=== PATIENT | female | born 2000 | race Caucasian/White ===

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

== ENCOUNTER 2021-02-18 22:27 | Emergency (ER) | payer MEDICAID ==
--- NOTE | 2021-02-18 22:38 | ERPHSYRPT ---
- History of Present Illness Time Seen by Provider: 02/18/21 22:33 Source: patient Physician History: The patient presents with a chief complaint of a sore throat. Onset was 2 to 3 days ago. The pain is constant and increases whenever she eats or drinks. She states that she has had a fever yesterday of 101 Fahrenheit. She also endorsed having some nasal congestion. She denies cough, shortness of breath, chest pain, headache. She denies any recent sick contacts. She reports been taken ibuprofen for pain and her last dose was either this morning or last night. When asked if she has been doing any salt water gargle she states that she "cannot." She comes to the emergency department seeking pain relief. Allergies/Adverse Reactions: sulfamethoxazole [From Bactrim] Adverse Reaction (Verified 04/24/17 09:03) Vomiting Hx Tetanus, Diphtheria Vaccination/Date Given: Yes Hx Influenza Vaccination/Date Given: No Hx Pneumococcal Vaccination/Date Given: No - Review of Systems Constitutional: Fever, No Chills, No Fatigue Ears, Nose, & Throat: Nose Congestion, Throat Pain, Painful Swallowing, No Nose Discharge, No Epistaxis, No Hoarse, No Stridor Respiratory: No Cough, No Dyspnea, No Stridor, No Wheezing Cardiac: No Chest Pain Abdominal/Gastrointestinal: No Abdominal Pain, No Nausea, No Vomiting All Other Systems: Reviewed and Negative - Past Medical History Pertinent Past Medical History: No Neurological History: No Pertinent History ENT History: No Pertinent History Cardiac History: No Pertinent History Respiratory History: Asthma Endocrine Medical History: No Pertinent History Musculoskeletal History: No Pertinent History GI Medical History: No Pertinent History History: No Pertinent History Psycho-Social History: No Pertinent History Female Reproductive Disorders: No Pertinent History Other Medical History: SEASONAL ALLERGIES - Past Surgical History Past Surgical History: Yes Neuro Surgical History: No Pertinent History Cardiac: No Pertinent History Respiratory: No Pertinent History Gastrointestinal: No Pertinent History Genitourinary: No Pertinent History Musculoskeletal: No Pertinent History Female Surgical History: No Pertinent History Other Surgical History: tubes in ears - Social History Smoking Status: Never smoker Exposure to second hand smoke: Yes Drug Use: none Patient Lives Alone: No Significant Family History: no pertinent family hx - Nursing Vital Signs Nursing Vital Signs: Initial Vital Signs Temperature 98 F 02/18/21 22:28 Pulse Rate 73 02/18/21 22:28 Respiratory Rate 18 02/18/21 22:28 Blood Pressure 129/77 02/18/21 22:28 O2 Sat by Pulse Oximetry 100 02/18/21 22:28 Pain Scale Pain Intensity 6 - Physical Exam General Appearance: no apparent distress, alert Eye Exam: PERRL/EOMI, No scleral icterus, No pale conjunctivae, No photophobia, No EOM palsy/anisocoria Ears, Nose, Throat Exam: TMs normal, moist mucous membranes, pharyngeal erythema, tonsillar exudate, other (2+ tonsils bilaterally with what appears to be developing exudate on both tonsils. No evidence of C[employer] CENTER DIRECTOR or Preet's. No evidence of poor dentition. No evidence of facial cellulitis.) Neck Exam: lymphadenopathy Respiratory Exam: normal breath sounds, No chest tenderness Cardiovascular Exam: regular rate/rhythm, normal peripheral pulses, capillary refill <2 sec, No murmur, No friction rub, No gallop Ordered Tests: Active Orders 24 hr Category Date Time Status [place] Screen Stat Lab 02/18/21 23:10 Completed Medication Summary Discontinued Medications Generic Name Dose Route Start Last Admin Trade Name Mark PRN Reason Stop Dose Admin Acetaminophen 1,000 mg 02/18/21 22:39 02/18/21 22:47 Acetaminophen 500 Mg Tablet PO 02/18/21 22:40 1,000 mg STAT ONE Administration Acetaminophen Confirm 02/18/21 22:46 Acetaminophen 500 Mg Tablet Administered 02/18/21 22:47 Dose 1,000 mg .ROUTE .STK-MED ONE Ibuprofen 400 mg 02/18/21 22:40 02/18/21 22:46 Ibuprofen 200 Mg Tablet PO 02/18/21 22:41 Not Given STAT ONE Ibuprofen 400 mg 02/18/21 22:46 02/18/21 22:47 Ibuprofen 400 Mg Tablet PO 02/18/21 22:47 400 mg STAT ONE Administration Ibuprofen Confirm 02/18/21 22:46 Ibuprofen 400 Mg Tablet Administered 02/18/21 22:47 Dose 400 mg .ROUTE .STK-MED ONE Lab/Rad Data: Laboratory Results 02/18/21 02/18/21 Range/Units 23:26 23:10 Monoscreen NEGATIVE (Negative) Group A Strep Antibody DETECTED (NEGATIVE) - Progress Progress: improved Progress Note: 02/18/21 23:34 Nontoxic in appearance. The patient likely suffering from a exudative tonsillitis likely viral etiology. There is no evidence of C[employer] CENTER DIRECTOR or Preet's and I doubt think any advanced imaging is warranted at this time. She tested negative for group A strep and her Monospot was negative. She ultimately was discharged home with instructions to take Tylenol and/or ibuprofen in a rotating manner for pain, throat lozenges, and to drink cool fluids and perform salt water gargles for pain relief. She agreed with and verbally understood the discharge plan. Counseled pt/family regarding: lab results, diagnosis, need for follow-up - Departure Departure Disposition: Home Clinical Impression: Exudative tonsillitis Condition: Stable Critical Care Time: No Referrals: ROLANDO ZIMMER [Primary Care Provider] - Follow up/PCP as directed Instructions: Sore Throat, Adult (DC) Additional Instructions: Please take Tylenol and or ibuprofen as needed for pain. You can purchase these medications [id number]. Please take these medications as instructed on the medication bottles. You can also apply [id number] throat lozenges to help with your sore throat. Also perform salt water gargles at least twice a day and continue to drink cool fluids to maintain hydration and for pain relief.
[2021-02-18] MEDS ORDERED: TYLENOL EXTRA STRENGTH 500 MG PO ONE (22:39)
[2021-02-18] MEDS ORDERED: MOTRIN 200 MG PO ONE (22:40)
[2021-02-18] MEDS ORDERED: TYLENOL EXTRA STRENGTH 500 MG ONE (22:46)
[2021-02-18] MEDS ORDERED: MOTRIN 400 MG ONE (22:46)
[2021-02-18] MEDS ORDERED: MOTRIN 400 MG PO ONE (22:46)
[2021-02-20 17:07] VITALS: BP 113/64; PULSE 51; O2SAT 99
== END 2021-02-18 23:36 | disposition home or self-care (01) ==
LOC: ED 22:27
DX: J03.90 Acute tonsillitis, unspecified (principal); R50.9 Fever, unspecified; R09.81 Nasal congestion
CPT/HCPCS: 36415; 86308; 87651; 99283; A9270-GY

== ENCOUNTER 2021-09-07 21:36 | Emergency (ER) | payer MEDICAID ==
[2021-09-07] MEDS ORDERED: BABY ASPIRIN 81 MG CHEW PO ONE (21:58)
[2021-09-07 22:11] LABS: Absolute Neutrophil Ct (ANC) 6.44 x10^3/uL (1.4-6.9); Basophil (Absolute #) 0.06 x10^3/uL (0-0.4); Eosinophil % 1.5 % (0.00-5.0); Eosinophil (Absolute #) 0.16 x10^3/uL (0-0.5); Hematocrit 35.4 % (35-47); Hemoglobin 12.1 g/dL (12.0-16.0); Lymphocyte (Absolute #) 2.96 x10^3/uL (1.0-4.6); Lymphocytes % 28.2 % (24.0-44.0); Mean Cell Volume 94.1 fL (78-100); Mean Corpuscular Hemoglobin 32.2 pg (26-32); Mean Corpuscular Hgb Concent. 34.2 g/dL (32-36); Mean Platelet Volume 9.5 fL (7.5-11.0); Monocyte (Absolute #) 0.84 x10^3/uL (0.0-1.3); Neutrophil % 61.4 % (36.0-66.0); Platelet Count 281 x10^3/uL (150-450); Red Blood Count 3.76 x10^6/uL (4.1-5.4); Red Cell Distribution Width 11.6 % (11.5-14.0); White Blood Count 10.5 x10^3/uL (4.0-10.5)
--- NOTE | 2021-09-07 22:13 | ERPHSYRPT ---
- History of Present Illness Time Seen by Provider: 09/07/21 21:37 Historian: patient Exam Limitations: no limitations Patient Subjective Stated Complaint: pt state "I have been feeling weird today and having palpitations." Triage Nursing Assessment: pt ambulated into the er; pt is axo x4; c/o palpitation; pt denies pain; pt states she feels off; pt states that she feels like her heart is racing; pt states "My lungs feel shaky."; clear, bounding apical pulse at 78 bpm; clear lung sounds in all lobes; strong sanjeev radial pulses; strong sanjeev pedal pulses; no edema present; vitals wnl; pt denies chest pain Physician History: 20 years old female presented in the ER with chief complaint of palpitations almost 2 hours ago while she was shopping, started feeling weird with as if she was having shortness of breath/short winded without any chest pain. It lasted for few minutes with improvement in palpitation but still feeling weird. Does have history of anxiety and panic attacks but it seems a little different than usual. No fever chills, nausea or vomiting reported. Denies any sick contact. Denies alcohol or drug use. Timing/Duration: today, resolved prior to arrival, sudden, improved Activities at Onset: activity Chest Pain Radiation: no radiation Severity of Pain-Max: none Severity of Pain-Current: none Modifying Factors: Improves With: nothing Associated Symptoms: palpitations, shortness of breath Prior Chest Pain/Cardiac Workup: no prior chest pain, no prior cardiac workup Nitro Today/Relief: no nitro taken today Aspirin Treatment Today: no aspirin today Allergies/Adverse Reactions: sulfamethoxazole [From Bactrim] Adverse Reaction (Verified 09/07/21 21:43) Vomiting Home Medications: No Reportable Medications [No Reported Medications] 09/07/21 [History] Hx Tetanus, Diphtheria Vaccination/Date Given: Yes Hx Influenza Vaccination/Date Given: No Hx Pneumococcal Vaccination/Date Given: No Immunizations Up to Date: Yes Travel Risk - International Travel Have you traveled outside of the country in past 3 weeks: No - Coronavirus Screening Are you exhibiting any of the following symptoms?: No Close contact with a COVID-19 positive Pt in past 14-21 Days: No - Vaccine Status Have you recieved a Covid-19 vaccination: No - Review of Systems Constitutional: No Symptoms Eyes: No Symptoms Ears, Nose, & Throat: No Symptoms Respiratory: Dyspnea Cardiac: Palpitations Abdominal/Gastrointestinal: No Symptoms Genitourinary Symptoms: No Symptoms Musculoskeletal: No Symptoms Skin: No Symptoms Neurological: No Symptoms Psychological: Anxiety Endocrine: No Symptoms Hematologic/Lymphatic: No Symptoms Immunological/Allergic: No Symptoms - Past Medical History Pertinent Past Medical History: No Neurological History: No Pertinent History ENT History: No Pertinent History Cardiac History: No Pertinent History Respiratory History: Asthma Endocrine Medical History: No Pertinent History Musculoskeletal History: No Pertinent History GI Medical History: No Pertinent History History: No Pertinent History Psycho-Social History: No Pertinent History Female Reproductive Disorders: No Pertinent History Other Medical History: SEASONAL ALLERGIES - Past Surgical History Past Surgical History: Yes Neuro Surgical History: No Pertinent History Cardiac: No Pertinent History Respiratory: No Pertinent History Gastrointestinal: No Pertinent History Genitourinary: No Pertinent History Musculoskeletal: No Pertinent History Female Surgical History: No Pertinent History Other Surgical History: tubes in ears - Social History Smoking Status: Light tobacco smoker Exposure to second hand smoke: Yes Drug Use: none Patient Lives Alone: No Significant Family History: no pertinent family hx - Female History Hx Last Menstrual Period: 09/07/21 Hx Now: (unkn) - Nursing Vital Signs Nursing Vital Signs: Initial Vital Signs Temperature 97.2 F 09/07/21 21:43 Pulse Rate 78 09/07/21 21:43 Respiratory Rate 10 L 09/07/21 21:43 Blood Pressure 138/87 09/07/21 21:43 O2 Sat by Pulse Oximetry 100 09/07/21 21:43 Pain Scale Pain Intensity 0 - Physical Exam General Appearance: no apparent distress, alert, anxiety Eye Exam: PERRL/EOMI, eyes nml inspection Ears, Nose, Throat Exam: normal ENT inspection, TMs normal, pharynx normal, moist mucous membranes Neck Exam: normal inspection, non-tender, supple, full range of motion Respiratory Exam: normal breath sounds, lungs clear Cardiovascular Exam: regular rate/rhythm, normal heart sounds Gastrointestinal/Abdomen Exam: soft, normal bowel sounds, No tenderness Back Exam: normal inspection, normal range of motion Extremity Exam: normal inspection, normal range of motion, pelvis stable Neurologic Exam: alert, oriented x 3, cooperative, tag stringer II-XII nml as tested, se nsation nml, No normal mood/affect Skin Exam: normal color SpO2 Interpretation: normal SpO2: 100 O2 Delivery: Room Air - Course EKG Interpreted by Me: RATE (70), Sinus Rhythm, NORMAL AXIS, NORMAL INTERVALS, NORMAL QRS Ordered Tests: Active Orders 24 hr Category Date Time Status Top Icer STAT Care 09/07/21 21:58 Active EKG-ER Only STAT Care 09/07/21 21:58 Active CHEST 1 VIEW (PORTABLE) Stat Exams 09/07/21 21:58 Taken CBC W DIFF Stat Lab 09/07/21 22:10 Completed CK-Creatinine Phosphokinase Stat Lab 09/07/21 22:10 Completed CMP Stat Lab 09/07/21 22:10 Completed D-DIMER QUANTITATIVE Stat Lab 09/07/21 22:10 Completed HCG QUALITATIVE,SERUM Stat Lab 09/07/21 22:10 Completed MAGNESIUM Stat Lab 09/07/21 22:10 Completed NT PRO BNP Stat Lab 09/07/21 22:10 Completed TROPONIN Q3H Lab 09/07/21 22:10 Completed TROPONIN Q3H Lab 09/08/21 01:00 Ordered TROPONIN Q3H Lab 09/08/21 04:00 Ordered TROPONIN Q3H Lab 09/08/21 07:00 Ordered TROPONIN Q3H Lab 09/08/21 10:00 Ordered TSH [TSH, 3RD Generation] Stat Lab 09/07/21 22:10 Completed Medication Summary Discontinued Medications Generic Name Dose Route Start Last Admin Trade Name Everq PRN Reason Stop Dose Admin Aspirin 324 mg 09/07/21 21:58 09/07/21 22:06 Aspirin 81 Mg Tab.Chew PO 09/07/21 21:59 324 mg STAT ONE Administration Lab/Rad Data: Laboratory Result Diagrams 09/07/21 22:10 09/07/21 22:10 Laboratory Results 09/07/21 09/07/21 09/07/21 Range/Units 22:10 22:10 22:10 WBC (4.0-10.5) x10^3/uL RBC (4.1-5.4) x10^6/uL Hgb (12.0-16.0) g/dL Hct (35-47) % MCV (78-100) fL MCH (26-32) pg MCHC (32-36) g/dL RDW (11.5-14.0) % Plt Count (150-450) x10^3/uL MPV (7.5-11.0) fL Gran % (36.0-66.0) % Immature Gran % (Auto) (0.00-0.4) % Nucleat RBC Rel Count (0.00-0.1) % Eos # (Auto) (0-0.5) x10^3/uL Immature Gran # (Auto) (0.00-0.03) x10^3u/L Absolute Lymphs (auto) (1.0-4.6) x10^3/uL Absolute Monos (auto) (0.0-1.3) x10^3/uL Absolute Nucleated RBC (0.00-0.01) x10^3u/L Lymphocytes % (24.0-44.0) % Monocytes % (0.0-12.0) % Eosinophils % (0.00-5.0) % Basophils % (0.0-0.4) % Absolute Granulocytes (1.4-6.9) x10^3/uL Basophils # (0-0.4) x10^3/uL D-Dimer 0.36 (0.0-0.50) mg/L Sodium (137-145) mmol/L Potassium (3.5-5.1) mmol/L Chloride (98-107) mmol/L Carbon Dioxide (22-30) mmol/L Anion Gap (5-15) MEQ/L BUN (7-17) mg/dL Creatinine (0.52-1.04) mg/dL Estimated GFR ML/MIN Glucose (74-106) mg/dL Calcium (8.4-10.2) mg/dL Magnesium (1.6-2.3) mg/dL Total Bilirubin (0.2-1.3) mg/dL AST (14-36) U/L ALT (0-35) U/L Alkaline Phosphatase (38-126) U/L Creatine Kinase (30-135) U/L Troponin I < 0.012 (0.000-0.034) ng/mL NT-Pro-B Natriuret Pep (0-450) pg/mL Serum Total Protein (6.3-8.2) g/dL Albumin (3.5-5.0) g/dL TSH 3rd Generation (0.47-4.68) mIU/L Serum , Qual NEGATIVE (Negative) 09/07/21 09/07/21 Range/Units 22:10 22:10 WBC 10.5 (4.0-10.5) x10^3/uL RBC 3.76 L (4.1-5.4) x10^6/uL Hgb 12.1 (12.0-16.0) g/dL Hct 35.4 (35-47) % MCV 94.1 (78-100) fL MCH 32.2 H (26-32) pg MCHC 34.2 (32-36) g/dL RDW 11.6 (11.5-14.0) % Plt Count 281 (150-450) x10^3/uL MPV 9.5 (7.5-11.0) fL Gran % 61.4 (36.0-66.0) % Immature Gran % (Auto) 0.3 (0.00-0.4) % Nucleat RBC Rel Count 0.0 (0.00-0.1) % Eos # (Auto) 0.16 (0-0.5) x10^3/uL Immature Gran # (Auto) 0.03 (0.00-0.03) x10^3u/L Absolute Lymphs (auto) 2.96 (1.0-4.6) x10^3/uL Absolute Monos (auto) 0.84 (0.0-1.3) x10^3/uL Absolute Nucleated RBC 0.00 (0.00-0.01) x10^3u/L Lymphocytes % 28.2 (24.0-44.0) % Monocytes % 8.0 (0.0-12.0) % Eosinophils % 1.5 (0.00-5.0) % Basophils % 0.6 (0.0-0.4) % Absolute Granulocytes 6.44 (1.4-6.9) x10^3/uL Basophils # 0.06 (0-0.4) x10^3/uL D-Dimer (0.0-0.50) mg/L Sodium 138 (137-145) mmol/L Potassium 3.7 (3.5-5.1) mmol/L Chloride 104 (98-107) mmol/L Carbon Dioxide 27 (22-30) mmol/L Anion Gap 10.5 (5-15) MEQ/L BUN 10 (7-17) mg/dL Creatinine 0.84 (0.52-1.04) mg/dL Estimated GFR > 60.0 ML/MIN Glucose 90 (74-106) mg/dL Calcium 9.3 (8.4-10.2) mg/dL Magnesium 1.8 (1.6-2.3) mg/dL Total Bilirubin 0.80 (0.2-1.3) mg/dL AST 21 (14-36) U/L ALT 13 (0-35) U/L Alkaline Phosphatase 45 (38-126) U/L Creatine Kinase 100 (30-135) U/L Troponin I (0.000-0.034) ng/mL NT-Pro-B Natriuret Pep 35.3 (0-450) pg/mL Serum Total Protein 6.8 (6.3-8.2) g/dL Albumin 4.2 (3.5-5.0) g/dL TSH 3rd Generation 1.360 (0.47-4.68) mIU/L Serum , Qual (Negative) - Progress Progress: improved Air Movement: good Progress Note: 09/07/21 23:11 20 years old is evaluated for palpitation. EKG showed normal sinus rhythm with no acute ischemic changes and negative troponins. Also has negative D-dimer. Chest x-ray reviewed by me no acute finding. Negative chemistry profile including TSH. Her symptoms could be secondary to anxiety. Recommended outpatient follow-up. Discussed signs symptoms of worsening needing return to ER which she seems understanding. She is a low heart score, do not think needs further work-up and is stable for discharge with outpatient follow-up. Blood Culture(s) Obtained: No Antibiotics given: No Counseled pt/family regarding: lab results, diagnosis, need for follow-up, rad results, smoking cessation - Departure Departure Disposition: Home Clinical Impression: Palpitations, Anxiety Condition: Stable Critical Care Time: No Referrals: ROLANDO ZIMMER [Primary Care Provider] - Follow up/PCP as directed (1-2 days for reevaluation) Instructions: Palpitations (DC) Additional Instructions: Follow-up with primary care for reevaluation. Do not smoke/vape. Return to ER for any worsening.
[2021-09-07 23:00] LABS: ALBUMIN 4.2 g/dL (3.5-5.0); ALKALINE PHOSPHATASE 45 U/L (38-126); ANION GAP 10.5 MEQ/L (5-15); BLOOD UREA NITROGEN 10 mg/dL (7-17); CHLORIDE 104 mmol/L (98-107); CK-Creatinine Phosphokinase 100 U/L (30-135); Calcium 9.3 mg/dL (8.4-10.2); Carbon Dioxide 27 mmol/L (22-30); Creatinine 1 0.84 mg/dL (0.52-1.04); EST GLOMERULAR FILTRATION RATE > 60.0 ML/MIN; Glucose 90 mg/dL (74-106); MAGNESIUM 1.8 mg/dL (1.6-2.3); NT PRO BNP 35.3 pg/mL (0-450); Potassium 3.7 mmol/L (3.5-5.1); SGOT/AST 21 U/L (14-36); SGPT/ALT 13 U/L (0-35); SODIUM 138 mmol/L (137-145); Total Protein 6.8 g/dL (6.3-8.2)
[2021-09-07 23:05] VITALS: BP 112/58; PULSE 70
[2021-09-07 23:13] VITALS: O2SAT 100
--- NOTE | 2021-09-08 09:11 | XRAY ---
Indication: Palpitations. Comparison: June 26, 2014. Portable chest again demonstrates normal heart, lungs, and bony thorax.
== END 2021-09-07 23:37 | disposition home or self-care (01) ==
LOC: ED 21:36
DX: R00.2 Palpitations (principal); F41.9 Anxiety disorder, unspecified; R06.02 Shortness of breath; Z72.0 Tobacco use; Z28.310 Unvaccinated for COVID-19
CPT/HCPCS: 36415; 71045; 80053; 82550; 83735; 83880; 84443; 84484; 84703; 85025; 85379; 93005; 93041; 99284; A9270-GY

== ENCOUNTER 2022-09-15 11:54 | Emergency (ER) | payer MEDICAID, OTHER ==
[2022-09-15] MEDS ORDERED: Sodium Chloride 0.9% 1000 ML 1,000 ML IV STA ×2 (12:23→14:35)
--- NOTE | 2022-09-15 12:37 | ERPHSYRPT ---
- History of Present Illness Time Seen by Provider: 09/15/22 12:35 Historian: patient Exam Limitations: no limitations Patient Subjective Stated Complaint: Pt reports she started experiencing abdominal pain throughout abdomen on Saturday. Some vomiting and diarrhea. Triage Nursing Assessment: Pt alert and oriented x3. No apparent respiratory dis tress. Ambulated to ED cot without difficulty. Skin w/p/d. Active bowel sounds in all four quads. Abdomen soft/minimal tenderness with palpation. Physician History: Pt reports she started experiencing abdominal pain throughout abdomen on Saturday. Some vomiting and diarrhea since yesterday Activities at Onset: none Quality: cramping Abdominal Pain Onset Location: generalized abdomen Pain Radiation: no radiation Modifying Factors: Improves With: nothing Associated Symptoms: diarrhea, fever/chills, nausea, vomiting Previous symptoms: no prior history Allergies/Adverse Reactions: sulfamethoxazole [From Bactrim] Adverse Reaction (Verified 09/15/22 12:12) Vomiting Hx Tetanus, Diphtheria Vaccination/Date Given: Yes Hx Influenza Vaccination/Date Given: No Hx Pneumococcal Vaccination/Date Given: No Travel Risk - International Travel Have you traveled outside of the country in past 3 weeks: No - Coronavirus Screening Are you exhibiting any of the following symptoms?: No - Vaccine Status Have you recieved a Covid-19 vaccination: No - Review of Systems Constitutional: No Fever, No Chills Eyes: No Symptoms Ears, Nose, & Throat: No Symptoms Respiratory: No Cough, No Dyspnea Cardiac: No Chest Pain, No Edema, No Syncope Abdominal/Gastrointestinal: Abdominal Pain, Nausea, Vomiting, No Diarrhea Genitourinary Symptoms: Dysuria, Hesitancy, Urgency Musculoskeletal: No Back Pain, No Neck Pain Skin: No Rash Neurological: No Dizziness, No Focal Weakness, No Sensory Changes Psychological: No Symptoms Endocrine: No Symptoms All Other Systems: Reviewed and Negative - Past Medical History Pertinent Past Medical History: No Neurological History: No Pertinent History ENT History: No Pertinent History Cardiac History: No Pertinent History Respiratory History: Asthma Endocrine Medical History: No Pertinent History Musculoskeletal History: No Pertinent History GI Medical History: No Pertinent History History: No Pertinent History Psycho-Social History: No Pertinent History Female Reproductive Disorders: No Pertinent History Other Medical History: SEASONAL ALLERGIES - Past Surgical History Past Surgical History: Yes Neuro Surgical History: No Pertinent History Cardiac: No Pertinent History Respiratory: No Pertinent History Gastrointestinal: No Pertinent History Genitourinary: No Pertinent History Musculoskeletal: No Pertinent History Female Surgical History: No Pertinent History Other Surgical History: tubes in ears - Social History Smoking Status: Never smoker Exposure to second hand smoke: No Drug Use: marijuana Patient Lives Alone: No Significant Family History: no pertinent family hx - Female History Hx Last Menstrual Period: 09/13/22 Hx Now: No - Nursing Vital Signs Nursing Vital Signs: Initial Vital Signs Temperature 97.6 F 09/15/22 12:10 Pulse Rate 68 09/15/22 12:10 Respiratory Rate 15 09/15/22 12:10 Blood Pressure 121/83 09/15/22 12:10 O2 Sat by Pulse Oximetry 97 09/15/22 12:10 Pain Scale Pain Intensity 5 - Physical Exam General Appearance: no apparent distress, alert Eye Exam: PERRL/EOMI, eyes nml inspection Ears, Nose, Throat Exam: normal ENT inspection, pharynx normal, moist mucous membranes Neck Exam: normal inspection, non-tender, supple, full range of motion Respiratory Exam: normal breath sounds, lungs clear, No respiratory distress Cardiovascular Exam: regular rate/rhythm, normal heart sounds Gastrointestinal/Abdomen Exam: soft, No tenderness, No mass Pelvic Exam: not done Back Exam: normal inspection, normal range of motion, No CVA tenderness, No vertebral tenderness Extremity Exam: normal inspection, normal range of motion, pelvis stable Neurologic Exam: alert, oriented x 3, cooperative, normal mood/affect, nml cerebellar function, sensation nml, No motor deficits Skin Exam: normal color, warm, dry SpO2: 97 - Course Nursing assessment & vital signs reviewed: Yes Ordered Tests: Active Orders 24 hr Category Date Time Status ABDOMEN AND PELVIS W/0 CONTRAS [CT] Stat Exams 09/15/22 14:31 Completed AMYLASE Stat Lab 09/15/22 12:27 Completed CBC W DIFF Stat Lab 09/15/22 12:27 Completed CMP Stat Lab 09/15/22 12:27 Completed HCG QUALITATIVE, SERUM Stat Lab 09/15/22 12:27 Completed LIPASE Stat Lab 09/15/22 12:27 Completed UA W/RFX UR CULTURE Stat Lab 09/15/22 12:27 Completed Medication Summary Discontinued Medications Generic Name Dose Route Start Last Admin Trade Name Freq PRN Reason Stop Dose Admin Sodium Chloride 1,000 mls @ 999 mls/hr 09/15/22 12:23 09/15/22 14:12 Sodium Chloride 0.9% 1000 Ml IV 09/15/22 13:23 Infused .Q1H1M STA Infusion Sodium Chloride Confirm 09/15/22 12:51 Sodium Chloride 0.9% 1000 Ml Administered 09/15/22 12:52 Dose 1,000 mls @ ud .ROUTE .STK-MED ONE Ceftriaxone Sodium/Dextrose 1 g in 50 mls @ 100 mls/hr 09/15/22 14:31 09/15/22 15:17 Rocephin 1 Gm-D5w 50 Ml Bag IV 09/15/22 15:00 Infused STAT STA Infusion Sodium Chloride 1,000 mls @ 999 mls/hr 09/15/22 14:35 09/15/22 15:43 Sodium Chloride 0.9% 1000 Ml IV 09/15/22 15:35 Infused .Q1H1M STA Infusion Ceftriaxone Sodium/Dextrose Confirm 09/15/22 14:35 Rocephin 1 Gm-D5w 50 Ml Bag Administered 09/15/22 14:36 Dose 1 g in 50 mls @ ud IV .STK-MED ONE Sodium Chloride Confirm 09/15/22 14:35 Sodium Chloride 0.9% 1000 Ml Administered 09/15/22 14:36 Dose 1,000 mls @ ud .ROUTE .STK-MED ONE Lab/Rad Data: Laboratory Result Diagrams 09/15/22 12:27 09/15/22 12:27 Laboratory Results 09/15/22 09/15/22 09/15/22 Range/Units 12:27 12:27 12:27 WBC 12.9 H (4.0-10.5) x10^3/uL RBC 4.37 (4.1-5.4) x10^6/uL Hgb 13.9 (12.0-16.0) g/dL Hct 40.8 (35-47) % MCV 93.4 (78-100) fL MCH 31.8 (26-32) pg MCHC 34.1 (32-36) g/dL RDW 11.2 L (11.5-14.0) % Plt Count 285 (150-450) x10^3/uL MPV 9.5 (7.5-11.0) fL Gran % 89.1 H (36.0-66.0) % Immature Gran % (Auto) 0.2 (0.00-0.4) % Nucleat RBC Rel Count 0.0 (0.00-0.1) % Eos # (Auto) 0.02 (0-0.5) x10^3/uL Immature Gran # (Auto) 0.03 (0.00-0.03) x10^3u/L Absolute Lymphs (auto) 0.89 L (1.0-4.6) x10^3/uL Absolute Monos (auto) 0.43 (0.0-1.3) x10^3/uL Absolute Nucleated RBC 0.00 (0.00-0.01) x10^3u/L Lymphocytes % 6.9 L (24.0-44.0) % Monocytes % 3.3 (0.0-12.0) % Eosinophils % 0.2 (0.00-5.0) % Basophils % 0.3 (0.0-0.4) % Absolute Granulocytes 11.46 H (1.4-6.9) x10^3/uL Basophils # 0.04 (0-0.4) x10^3/uL Sodium 138 (137-145) mmol/L Potassium 3.9 (3.5-5.1) mmol/L Chloride 99 (98-107) mmol/L Carbon Dioxide 25 (22-30) mmol/L Anion Gap 18.0 H (5-15) MEQ/L BUN 9 (7-17) mg/dL Creatinine 0.81 (0.52-1.04) mg/dL Estimated GFR > 60.0 ML/MIN Glucose 86 (74-106) mg/dL Calcium 9.7 (8.4-10.2) mg/dL Total Bilirubin 1.40 H (0.2-1.3) mg/dL AST 27 (14-36) U/L ALT 16 (0-35) U/L Alkaline Phosphatase 50 (38-126) U/L Serum Total Protein 8.4 H (6.3-8.2) g/dL Albumin 4.9 (3.5-5.0) g/dL Amylase 55 (30-110) U/L Lipase 56 (23-300) U/L Serum HCG, Qual NEGATIVE (NEGATIVE) Urine Color (Yellow) Urine Appearance (Clear) Urine pH (4.6-8.0) Ur Specific Gracey (1.005-1.030) Urine Protein (Negative) Urine Glucose (UA) (Negative) mg/dL Urine Ketones (Negative) Urine Blood (Negative) Urine Nitrite (Negative) Urine Bilirubin (Negative) Urine Urobilinogen (0.2) mg/dL Ur Leukocyte Esterase (Negative) U Hyaline Cast (Auto) (0-2) /LPF Urine Microscopic RBC (0-5) /HPF Urine Microscopic WBC (0-5) /HPF Ur Epithelial Cells (None Seen) /HPF Urine Bacteria (None Seen) /HPF Urine Culture Reflexed (NO) 09/15/22 Range/Units 12:27 WBC (4.0-10.5) x10^3/uL RBC (4.1-5.4) x10^6/uL Hgb (12.0-16.0) g/dL Hct (35-47) % MCV (78-100) fL MCH (26-32) pg MCHC (32-36) g/dL RDW (11.5-14.0) % Plt Count (150-450) x10^3/uL MPV (7.5-11.0) fL Gran % (36.0-66.0) % Immature Gran % (Auto) (0.00-0.4) % Nucleat RBC Rel Count (0.00-0.1) % Eos # (Auto) (0-0.5) x10^3/uL Immature Gran # (Auto) (0.00-0.03) x10^3u/L Absolute Lymphs (auto) (1.0-4.6) x10^3/uL Absolute Monos (auto) (0.0-1.3) x10^3/uL Absolute Nucleated RBC (0.00-0.01) x10^3u/L Lymphocytes % (24.0-44.0) % Monocytes % (0.0-12.0) % Eosinophils % (0.00-5.0) % Basophils % (0.0-0.4) % Absolute Granulocytes (1.4-6.9) x10^3/uL Basophils # (0-0.4) x10^3/uL Sodium (137-145) mmol/L Potassium (3.5-5.1) mmol/L Chloride (98-107) mmol/L Carbon Dioxide (22-30) mmol/L Anion Gap (5-15) MEQ/L BUN (7-17) mg/dL Creatinine (0.52-1.04) mg/dL Estimated GFR ML/MIN Glucose (74-106) mg/dL Calcium (8.4-10.2) mg/dL Total Bilirubin (0.2-1.3) mg/dL AST (14-36) U/L ALT (0-35) U/L Alkaline Phosphatase (38-126) U/L Serum Total Protein (6.3-8.2) g/dL Albumin (3.5-5.0) g/dL Amylase (30-110) U/L Lipase (23-300) U/L Serum HCG, Qual (NEGATIVE) Urine Color Dark Yellow A (Yellow) Urine Appearance Clear (Clear) Urine pH 5.5 (4.6-8.0) Ur Specific Gracey 1.025 (1.005-1.030) Urine Protein Trace A (Negative) Urine Glucose (UA) Negative (Negative) mg/dL Urine Ketones 80 A (Negative) Urine Blood Negative (Negative) Urine Nitrite Negative (Negative) Urine Bilirubin Negative (Negative) Urine Urobilinogen 1.0 A (0.2) mg/dL Ur Leukocyte Esterase Negative (Negative) U Hyaline Cast (Auto) NONE SEEN (0-2) /LPF Urine Microscopic RBC 0-2 (0-5) /HPF Urine Microscopic WBC 0-2 (0-5) /HPF Ur Epithelial Cells Few (None Seen) /HPF Urine Bacteria None Seen (None Seen) /HPF Urine Culture Reflexed NO (NO) CT/ABDOMEN AND PELVIS W/0 CONTRAS CLINICAL HISTORY:Abdominal pain, nausea, and vomiting; COMPARISON:None; TECHNIQUES:CT scan of the abdomen and pelvis was performed without IV or oral contrast. Coronal and sagittal reconstructive images were also obtained; FINDINGS: A scan through the lower chest reveals an unremarkable lung basis and heart. Abdomen. The liver is mildly enlarged and measures about 18 cm. No focal or diffuse parenchymal abnormality. The gallbladder shows the normal capacity and no definite stones. There is no evidence of wall thickening/ pericholecystic collection. The portal vein, intrahepatic biliary radicals, and bile ducts are normal. The spleen is normal in size, measures about 10.4 X 6.8 cm. The pancreas, and adrenal glands are unremarkable. The kidneys are unremarkable. They are normal in size and shape. No calculi or hydronephrosis. The ascending colon, the transverse colon, and the descending colon visualized small bowel loops are unremarkable. There is no evidence of significant enlargement of the mesenteric or retroperitoneal lymph nodes. Pelvis. The urinary bladder is unremarkable. The rectosigmoid colon is unremarkable. The other pelvic organs are unremarkable. The pelvic vasculature is unremarkable. No significant pelvic lymphadenopathy. No evident pelvic mass lesions or collections. No definite bony abnormalities could be depicted. NB: Normal CT appearance of the appendix. IMPRESSION: 1. Limited organ parenchymal evaluation in the limitations of noncontrast study. 2. Mild hepatomegaly. 3. No acute intra-abdominal abnormality. - Progress Progress: improved Counseled pt/family regarding: lab results, diagnosis, need for follow-up, rad results Medical Desision Making - Diagnostic Testing Diagnostic test were ordered, analyzed, and reviewed by me: Yes Radiological Interpretation: Discussed w/ radiologist - Risk of complications Low Risk: Low risk of morbidity from additional dx testing or treatment The pt has a mod risk of morbidity or mortality based on: Need for prescription drug management - Departure Departure Disposition: Home Clinical Impression: Anxiety Abdominal pain Qualifiers: Abdominal location: generalized Qualified Code(s): R10.84 - Generalized abdominal pain Condition: Stable Critical Care Time: Yes Critical Care Time(excluding separately billable procedures): Critical 30-74 mins Referrals: DOCTOR,NO FAMILY [Primary Care Provider] - Follow up/PCP as directed Instructions: Severe Abdominal Pain, Adult (DC) Additional Instructions: Discharge/Care Plan CHRIS WYNNE was seen on 09/15/22 in the Emergency Room. The patient was counseled regarding Diagnosis,Lab results, Imaging studies, need for follow up and when to return to the Emergency Room. Prescriptions given: Discharge Note I have spoken with the patient and/or caregivers. I have explained the patient's condition, diagnosis and treatment plan based on the information available to me at this time. I have answered the patient's and/or caregiver's questions and addressed any concerns. The patient and/or caregivers have as good understanding of the patient's diagnosis, condition and treatment plan as can be expected at this point. The vital signs have been stable. The patient's condition is stable and appropriate for discharge from the emergency department. The patient will pursue further outpatient evaluation with the primary care physician or other designated or consulting physician as outlined in the discharge instructions. The patient and/or caregivers are agreeable to this plan of care and follow-up instructions have been explained in detail. The patient and/or caregivers have received these instruction. The patient/and or caregivers are aware that any significant change in condition or worsening of symptoms should prompt an immediate return to this or the closest emergency department or call 911. CHRIS WYNNE was seen on 09/15/22 n the Emergency Room. At that time you were treated for an emergent condition, during your visit Laboratory, Radiology and/or other procedures may have been ordered. It is very important that you fo llow-up with your Primary Care Physician NO FAMILY DOCTOR within the next 24-48 hours to review your Emergency Room visit and the final results of testing that was ordered. Some test results such as Urine Cultures, Blood Cultures, and other cultures if ordered will not be finalized for 24-48 hours. If you do not have a Primary Care Provider please call the medical records department at [phone] to obtain a copy of your results or you may sign into our patient portal to obtain these results by visiting us @ [email or web address] and completing the following steps: 1. Click on the Patient Portal link 2. Click the Patient Self Enrollment Link to complete the enrollment form and entering your 3. Once the enrollment form is completed you will receive an email with a temporary ID and password at the email address you provided. 4. Next choose a user name and password. Your user name must be at least 4 ch aracters long and your password must be at least 4 characters long. 5. Choose a security question from the list and provide your answer to the question. If you already have signed into the Health Portal you may access your Health Care Information 22/10 by the following steps: 1. Login to our website @ [email or web address] 2. Enter your original user name and password. FAQS The [facility] Portal is an online tool that contains your Lab Results, Radiology Reports, Visit History, Discharge Instructions and Health Summary Lab and Radiology Results will not be available for 72 hours on the portal. The Portal is a secure site, passwords are encryted and URLs are re-written so they cannot be copied and pasted. You and authorized family members are the only ones who can access your Portal. Also there is a timeout feature that protects your information if you leave the Portal page open. If you have technical difficulty please use the Contact Us link on the page this will allow you to submit any questions you have regarding the Portal or you may contact the Medical Record Department at [phone]. Prescriptions: Hydroxyzine HCl 25 mg [Atarax 25 mg] 25 mg PO TID #45 tablet
[2022-09-15] MEDS ORDERED: Sodium Chloride 0.9% 1000 ML 1,000 ML ONE ×2 (12:51→14:35)
[2022-09-15 13:16] LABS: Absolute Neutrophil Ct (ANC) 11.46 x10^3/uL (1.4-6.9); BASOPHIL % 0.3 % (0.0-0.4); Basophil (Absolute #) 0.04 x10^3/uL (0-0.4); Eosinophil % 0.2 % (0.00-5.0); Eosinophil (Absolute #) 0.02 x10^3/uL (0-0.5); Hematocrit 40.8 % (35-47); Hemoglobin 13.9 g/dL (12.0-16.0); IMMATURE GRAN # 0.03 x10^3u/L (0.00-0.03); IMMATURE GRAN % 0.2 % (0.00-0.4); Lymphocyte (Absolute #) 0.89 x10^3/uL (1.0-4.6); Lymphocytes % 6.9 % (24.0-44.0); Mean Cell Volume 93.4 fL (78-100); Mean Corpuscular Hemoglobin 31.8 pg (26-32); Mean Corpuscular Hgb Concent. 34.1 g/dL (32-36); Mean Platelet Volume 9.5 fL (7.5-11.0); Monocyte (Absolute #) 0.43 x10^3/uL (0.0-1.3); Monocytes % 3.3 % (0.0-12.0); Neutrophil % 89.1 % (36.0-66.0); Platelet Count 285 x10^3/uL (150-450); Red Blood Count 4.37 x10^6/uL (4.1-5.4); Red Cell Distribution Width 11.2 % (11.5-14.0); White Blood Count 12.9 x10^3/uL (4.0-10.5)
[2022-09-15 13:32] LABS: ALBUMIN 4.9 g/dL (3.5-5.0); ALKALINE PHOSPHATASE 50 U/L (38-126); AMYLASE 55 U/L (30-110); BLOOD UREA NITROGEN 9 mg/dL (7-17); CHLORIDE 99 mmol/L (98-107); Calcium 9.7 mg/dL (8.4-10.2); Carbon Dioxide 25 mmol/L (22-30); Creatinine 1 0.81 mg/dL (0.52-1.04); EST GLOMERULAR FILTRATION RATE > 60.0 ML/MIN; Glucose 86 mg/dL (74-106); LIPASE 56 U/L (23-300); Potassium 3.9 mmol/L (3.5-5.1); SGOT/AST 27 U/L (14-36); SGPT/ALT 16 U/L (0-35); SODIUM 138 mmol/L (137-145); Total Protein 8.4 g/dL (6.3-8.2)
[2022-09-15 13:41] LABS: HCG SERUM TEST NEGATIVE (NEGATIVE)
[2022-09-15 13:42] LABS: Appearance Clear (Clear); Bacteria None Seen /HPF (None Seen); Bilirubin Negative (Negative); Blood Negative (Negative); Epithelial Cells Few /HPF (None Seen); Glucose, Urine Negative (Negative); Hyaline Casts NONE SEEN /LPF (0-2); Ketones 80 (Negative); Leukocyte Esterase Negative (Negative); Nitrite Negative (Negative); Ph 5.5 (4.6-8.0); Protein,Urine Dip Trace (Negative); RBC 0-2 /HPF (0-5); Specific Gravity 1.025 (1.005-1.030); WBC 0-2 /HPF (0-5)
[2022-09-15 13:43] LABS: ADD URINE CULTURE? NO (NO)
[2022-09-15 14:08] VITALS: BP 125/74
[2022-09-15] MEDS ORDERED: ROCEPHIN 1 Gm-D5w 50 ml Bag** 1 G/50 ML IVPB IV STA (14:31)
[2022-09-15] MEDS ORDERED: ROCEPHIN 1 Gm-D5w 50 ml Bag** 1 G/50 ML IVPB IV ONE (14:35)
--- NOTE | 2022-09-15 16:11 | XRAY ---
CLINICAL HISTORY:Abdominal pain, nausea, and vomiting; COMPARISON:None; TECHNIQUES:CT scan of the abdomen and pelvis was performed without IV or oral contrast. Coronal and sagittal reconstructive images were also obtained; FINDINGS: A scan through the lower chest reveals an unremarkable lung basis and heart. Abdomen. The liver is mildly enlarged and measures about 18 cm. No focal or diffuse parenchymal abnormality. The gallbladder shows the normal capacity and no definite stones. There is no evidence of wall thickening/ pericholecystic collection. The portal vein, intrahepatic biliary radicals, and bile ducts are normal. The spleen is normal in size, measures about 10.4 X 6.8 cm. The pancreas, and adrenal glands are unremarkable. The kidneys are unremarkable. They are normal in size and shape. No calculi or hydronephrosis. The ascending colon, the transverse colon, and the descending colon visualized small bowel loops are unremarkable. There is no evidence of significant enlargement of the mesenteric or retroperitoneal lymph nodes. Pelvis. The urinary bladder is unremarkable. The rectosigmoid colon is unremarkable. The other pelvic organs are unremarkable. The pelvic vasculature is unremarkable. No significant pelvic lymphadenopathy. No evident pelvic mass lesions or collections. No definite bony abnormalities could be depicted. NB: Normal CT appearance of the appendix. IMPRESSION: 1. Limited organ parenchymal evaluation in the limitations of noncontrast study. 2. Mild hepatomegaly. 3. No acute intra-abdominal abnormality. Electronically Signed by: Trina Simmons MD. (09/15/2022 15:03:01 PERSONAL ATTENDANT)
[2022-09-15 16:31] VITALS: PULSE 55
[2022-09-15 16:32] VITALS: O2SAT 97
== END 2022-09-15 16:44 | disposition home or self-care (01) ==
LOC: ED 11:54
DX: F41.9 Anxiety disorder, unspecified (principal); R10.84 Generalized abdominal pain; R11.2 Nausea with vomiting, unspecified; R19.7 Diarrhea, unspecified; Z28.310 Unvaccinated for COVID-19
CPT/HCPCS: 36000; 36415; 74176; 80053; 81001; 82150; 83690; 84703; 85025; 96365; 99284; 99291; J0696